=== PATIENT | female | born 1955 | race American Indian/Alaskan Native ===

== ENCOUNTER 2018-03-30 08:47 | Emergency (ER) | payer MEDICAID ==
[2018-03-30 08:53] VITALS: BP 159/94
[2018-03-30] MEDS ORDERED: MORPHINE IM ONE (09:29)
[2018-03-30] MEDS ORDERED: ZOFRAN IM ONE (09:29)
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
[2018-03-30] MEDS ORDERED: MORPHINE ONE (09:36)
[2018-03-30] MEDS ORDERED: ZOFRAN ONE (09:36)
--- NOTE | 2018-03-30 10:36 | Cat Scan Report ---
FINAL REPORT EXAM: CT CERVICAL SPINE WO CON HISTORY: NECK INJURY TECHNIQUE: CT of the Cervical Spine without IV contrast. Coronal and sagittal reformatted images were provided. PRIORS: None currently available. FINDINGS: There is no fracture. There is no subluxation. There is no atlantooccipital dislocation. Occipitocervical joint is intact. Nonspecific straightening of the normal lordotic alignment. C1-C2: Pxak-er-chkhjvvy arthrosis at the acromioclavicular joint. Mild prominence and partial calcification of the transverse ligament. No significant canal narrowing. C2-C3: Bilateral facet arthropathy. No significant canal or foraminal narrowing. C3-C4: Symmetrical disc osteophyte complex. Bilateral uncovertebral arthropathy. Mild bilateral foraminal narrowing and spinal canal narrowing. C4-C5: Grade 1 anterior subluxation. Symmetrical disc osteophyte complex. Superimposed 5.1 mm disc osteophyte protrusion. Bilateral uncovertebral arthropathy. Severe spinal canal narrowing. Torh-jo-ceutogxz bilateral foraminal narrowing. C5-C6: Symmetrical disc osteophyte complex. Left central disc osteophyte protrusion measures 3.5 mm. Bilateral uncovertebral arthropathy. Severe spinal canal narrowing. Severe bilateral foraminal narrowing. C6-C7: Symmetrical bulge. Bilateral uncovertebral arthropathy. Mild spinal canal narrowing. Moderate bilateral foraminal narrowing. C7-T1: No significant canal or foraminal narrowing. Partially imaged large left pleural effusion. Heterogenous thyroid gland. A distinct nodules not evident; however, nodules are not excluded. Mild carotid vascular calcifications. Prevertebral soft tissue structures are unremarkable. IMPRESSION: Nonspecific straightening of the normal lordotic alignment. Multilevel degenerative discs. No acute fracture.
== END 2018-03-30 11:18 | disposition home or self-care (01) ==
LOC: ED 08:47
DX: M54.2 Cervicalgia (principal); M62.838 Other muscle spasm; I10 Essential (primary) hypertension; F20.9 Schizophrenia, unspecified; F41.9 Anxiety disorder, unspecified; F32.9 Major depressive disorder, single episode, unspecified; F17.200 Nicotine dependence, unspecified, uncomplicated; Z21 Asymptomatic human immunodeficiency virus [HIV] infection status; Z88.8 Allergy status to other drugs, medicaments and biological substances
CPT/HCPCS: 72125; 96372; 99284; J2270; J2405